=== PATIENT | female | born 1950 | race Caucasian/White ===

== ENCOUNTER 2023-03-06 07:09 | Emergency (ER) | payer MEDICARE, MEDICAID, SELFPAY ==
--- NOTE | ~2023-03-06 | CT_ITS ---
Noncontrast CT scan of the cervical spine Technique: Multiple contiguous axial [address] images of the cervical spine were obtained and rec onstructed in 2D sagittal and coronal planes on the acquisition scanner. Dose reduction technique was used on this scan by utilizing automated exposure control, adjustment of the mA and/or kV according to patient size. The dose-length product (DLP) was 368.18 mGy-cm. Clinical History: Pain Findings: No fractures or dislocations. There is straightening of the normal cervical lordosis. Ther e is moderate degenerative disc narrowing at C4-C5. There is right neural foraminal narrowing at C4-C 5. Possible minimal bilateral neural foraminal narrowing at C5-C6. No prevertebral soft tissue swelli ng. Impression: No fracture or subluxation of the cervical spine. Degenerative changes, as detailed above. Reviewed, dictated and finalized at [facility]. Impression: No fracture or subluxation of the cervical spine. Degenerative changes, as detailed above.
--- NOTE | ~2023-03-06 | CT_ITS ---
CT head without contrast Indication: Status post fall Technique: Serial scans were obtained through the brain without the administration of contrast. Dose reduction technique was used on this scan by utilizing automated exposure control and iterative recon struction technique. The dose-length product (DLP) was 529.67 mGy-cm. Findings: There is no evidence of intracranial hemorrhage, mass lesion, or acute infarct. The ventri cles and subarachnoid spaces are unremarkable. Low attenuation regions are seen within the periventr icular white matter bilaterally, likely representing changes from chronic microvascular ischemic dise ase. There is no evidence of edema, mass effect or midline shift. The visualized paranasal sinuses and mastoid air cells are clear. Impression: No intracranial hemorrhage, mass, or acute infarct. Mild chronic white matter changes, as above. Reviewed, dictated and finalized at location . Impression: No intracranial hemorrhage, mass, or acute infarct. Mild chronic white matter changes, as above.
[2023-03-06 07:13] VITALS: BP 199/84; PULSE 85; RESP 16; TEMP 36.8; O2SAT 98
--- NOTE | 2023-03-06 07:31 | ED.FALL ---
HPI - Fall General Chief Complaint: Fall Stated Complaint: fall, head injury Time Seen by Provider: 03/06/23 07:30 Source: patient and family Mode of arrival: ambulatory Limitations: no limitations History of Present Illness HPI Narrative: Patient got out of the bed, stumbled and fell, hit the doorknob by left side of the occipital area, no loss of consciousness, denies other injuries or pain. Laceration at the left occipital area. Last tetanus shot was 2 years ago. Related Data Allergies Allergy/AdvReac Type Severity Reaction Status Date / Time acetaminophen [From Fioricet] Allergy Unknown Verified 03/06/23 07:22 butalbital [From Fioricet] Allergy Unknown Verified 03/06/23 07:22 caffeine [From Fioricet] Allergy Unknown Verified 03/06/23 07:22 muscle relaxers Allergy Unknown Uncoded 03/06/23 07:22 Review of Systems Review of Systems: All systems reviewed & are unremarkable except as noted in HPI and below Exam Narrative: General appearance: Well-developed, well-nourished Skin: Normal color Head: 4 cm left occipital subcutaneous laceration Eyes: Clear conjunctiva ENT: Oropharynx normal, ears normal, nose normal Neck: Supple, nontender Chest and respiratory: Airway patent, no respiratory distress, no accessory muscle use Heart: Regular rate/rhythm Abdomen: Soft, nontender, no organomegaly, quiet bowel sounds Vascular: Normal peripheral pulses, normal capillary refill. Musculoskeletal: Normal range of motion, nontender back Neurologic: Alert and oriented ?3, ENGINEERING MANAGER ELECTRONICS is normal as tested, no gross motor deficit Course Reevaluation(s) Reevaluation #1: Feeling much better and ready to go Date: 03/06/23 Time: 08:38 Vital Signs Vital signs: Vital Signs Temperature 36.8 C 03/06/23 07:13 Pulse Rate 85 03/06/23 07:13 Respiratory Rate 16 03/06/23 07:13 Blood Pressure 199/84 H 03/06/23 07:13 Pulse Oximetry 98 03/06/23 07:13 Oxygen Delivery Room Air 03/06/23 07:13 Temperature 36.8 C 03/06/23 07:13 Pulse Rate 85 03/06/23 07:13 Respiratory Rate 16 03/06/23 07:13 Blood Pressure 199/84 H 03/06/23 07:13 Pulse Oximetry 98 03/06/23 07:13 Oxygen Delivery Room Air 03/06/23 07:13 Procedures Laceration Laceration 1: Date: 03/06/23 Time: 08:39 Site: scalp Size (cm): 4 Description: stellate, irregular and clean Depth: simple, single layer Local Anesthetic: none Pre-repair: wound explored ====== Skin Level ====== Skin layer closed with: kris (5 kris) ====== Subcutaneous Layer ====== ====== Muscle Layer ====== ====== Tendon Layer ====== MDM - Fall MDM Narrative Medical decision making narrative: A fall, scalp laceration, no other injuries, 5 kris, patient tolerated the procedure well. CT head and CT cervical spine showed no acute abnormalities Differential Diagnosis Differential diagnosis: Likely other (Scalp laceration) Imaging Data Radiologist's impression: Impressions Head CT 03/06/23 08:02 Impression: No intracranial hemorrhage, mass, or acute infarct. Mild chronic white matter changes, as above. Cervical Spine CT 03/06/23 08:04 Impression: No fracture or subluxation of the cervical spine. Degenerative changes, as detailed above. Critical Care Time Critical Care Time Critical Care Time: No Discharge Plan Discharge Clinical Impression: Laceration of scalp Qualifiers: Encounter type: initial encounter Qualified Code(s): S01.01XA - Laceration without foreign body of scalp, initial encounter Patient Disposition: Home, Self-Care Condition: Improved
[2023-03-06 08:41] VITALS: BP 155/59; PULSE 70; RESP 16; O2SAT 96
== END 2023-03-06 08:42 | disposition home or self-care (01) ==
PROVIDERS: Emergency Provider Emergency Medicine; PCP Internal Medicine
DX: S01.01XA Laceration without foreign body of scalp, initial encounter (principal); W01.198A Fall on same level from slipping, tripping and stumbling with subsequent striking against other object, initial encounter
CPT/HCPCS: 12002; 70450; 72125; 99284

== ENCOUNTER 2024-07-23 08:26 | Outpatient (CLI) | payer MEDICARE, SELFPAY ==
--- NOTE | ~2024-07-23 | XR_ITS ---
Clinical Indication: Cough PA and lateral views of the chest: Comparison: None Findings: The lungs are clear, without evidence of focal consolidation or pleural effusion. Cardiome diastinal silhouette is within normal limits. Bones and soft tissues are unremarkable. Impression: Normal chest. Reviewed, dictated and finalized at location . ATION MANAGERS Impression: Normal chest.
== END 2024-07-23 08:27 | disposition home or self-care (01) ==
PROVIDERS: PCP Internal Medicine; Visit Provider Internal Medicine
DX: R05.9 Cough, unspecified (principal)
CPT/HCPCS: 71046

== ENCOUNTER 2024-08-16 07:41 | Outpatient (CLI) | payer MEDICARE, SELFPAY ==
--- NOTE | 2024-08-16 | ECHO_ITS ---
Patient Info Name: Rochelle Ibrahim Age: 74 years : 1950 Gender: Female Ht: 62 in Wt: 174 lbs BSA: 1.89 m2 HR: 63 bpm BP: 149 / 78 mmHg Technical Quality: Good Exam Date: 08/16/2024 7:59 AM Exam Location: Echo Lab Patient Status: Outpatient Admit Date: 08/16/2024 Staff Ordering Physician: NicolaAsif MD Art Installer: Bella Huerta RDCS Attending Provider: HueAsif MD Exam Type: CA echo doppler color flow Study Info Indications R01.1 - Cardiac murmur, unspecified Complete two-dimensional, color flow and Doppler transthoracic echocardiogram is performed. Summary 1. Complete two-dimensional, color flow and Doppler transthoracic echocardiogram is performed. 2. The left ventricle is normal in size and systolic function. The left ventricular ejection fraction is visually estimated to be 55-60%. 3. The right ventricle is normal in size and systolic function. Left Ventricle The left ventricle is normal in size and systolic function. The left ventricular ejection fraction is visually estimated to be 55-60%. Right Ventricle The right ventricle is normal in size and systolic function. Left Atria The left atrium is mildly dilated. Right Atria The right atrium is normal size. Atrial Septum The atrial septum visually appears intact. Aortic Valve The aortic valve is trileaflet and sclerotic. There is no aortic regurgitation. Pulmonic Valve The pulmonic valve is not well visualized. There is no color Doppler evidence of pulmonic valve regurgitation. Mitral Valve The mitral valve is normal. There is trace mitral regurgitation. Tricuspid Valve The tricuspid valve is grossly normal. There is trace tricuspid valve regurgitation. Pericardium/Pleural Pericardium is normal in appearance with no evidence for significant pericardial effusion. Inferior Vena Cava Empty inferior vena cava with <50% collapse upon inspiration consistent with elevated right atrial pressure, 10 mmHg. Aorta The aortic root at the level of the sinus of Valsalva measures 2.3 cm in diameter. Left Ventricular Outflow Tract Name Value Normal LVOT 2D LVOT Diameter 1.9 cm LVOT Doppler LVOT Peak Gradient 6 mmHg LVOT Mean Gradient 4 mmHg LVOT VTI 32 cm LVOT VTI/AV VTI Ratio 0.7 LVOT Stroke Volume 90 ml LVOT CO 5.4 l/min LVOT CI 2.9 l/min/m2 Pulmonic Valve Name Value Normal RVOT Doppler RVOT Peak Gradient 3 mmHg PV Doppler PV Peak Gradient 4 mmHg Mitral Valve Name Value Normal MV Doppler MV Decel [place] 357 cm/s2 MV PHT 78 ms MV Area (PHT) 2.8 cm2 4.0-5.0 MV Diastolic Function MV E Peak Velocity 96 cm/s MV A Peak Velocity 110 cm/s MV E/A 0.9 MV Decel Time 269 ms Tricuspid Valve Name Value Normal TV Regurgitation Doppler TR Peak Velocity 268 cm/s TR Peak Gradient 29 mmHg Estimated PAP/RSVP RA Pressure 10 mmHg <=5 PA Systolic Pressure 39 mmHg <36 RV Systolic Pressure 39 mmHg <36 Aorta Name Value Normal Ascending Aorta Ao Root Diameter (MM) 2.8 cm Ao Root Diam Index (MM) 1.5 cm/m2 Aortic Valve Name Value Normal AV Doppler AV Peak Velocity 194 cm/s AV Peak Gradient 15 mmHg AV Mean Gradient 9 mmHg AV VTI 43 cm AV Area (Cont Eq VTI) 2.1 cm2 >=3.0 AV Area (Cont Eq Gurpreet) 1.8 cm2 AV Regurgitation 2D LVOT Area 2.8 cm2 Ventricles Name Value Normal LV Dimensions 2D/MM IVS Diastolic Thickness (2D) 0.9 cm 0.6-1.0 IVS Diastole Thickness (MM) 1.1 cm 0.6-0.9 LVID Diastole (2D) 4.3 cm 3.8-5.2 LVID Diastole (MM) 6.6 cm 3.8-5.2 LVIW Diastolic Thickness (2D) 1.0 cm 0.6-0.9 LVIW Diastolic Thickness (MM) 1.1 cm 0.6-0.9 LVID Systole (2D) 2.6 cm 2.2-3.5 LVID Systole (MM) 3.6 cm 2.2-3.5 LVOT Diameter 1.9 cm LV Mass (2D Cubed) 141.59 g 67.00-162.00 LV Mass Index (2D Cubed) 75 g/m2 43-95 Relative Wall Thickness (2D) 0.48 LV Mass (MM Cubed) 339.43 g 67.00-162.00 LV Mass Index (MM Cubed) 180 g/m2 43-95 Relative Wall Thickness (MM) 0.34 LV Fractional Shortening/Ejection Fraction 2D/MM LV Fractional Shortening (2D) 39 % 27-45 LV Fractional Shortening (MM) 46 % 27-45 LV EF (MM Teicholz) 76 % 54-74 LV EF (2D Teicholz) 69 % 54-74 LV Diastolic Volume (4C MOD) 93 ml LV EF (4C MOD) 57 % LV Diastolic Volume (2C MOD) 68 ml LV EF (2C MOD) 57 % LV Diastolic Volume (BP MOD) 78 ml 46-106 LV Diastolic Volume Index (BP MOD) 41 ml/m2 29-61 LV Systolic Volume (BP MOD) 35 ml 14-42 LV Systolic Volume Index (BP MOD) 19 ml/m2 8-24 LV EF (BP MOD) 55 % 54-74 LV Diastolic Length (4C) 7.7 cm LV Systolic Length (4C) 6.6 cm LV Stroke Volume (4C MOD) 53 ml Atria Name Value Normal LA Dimensions LA Dimension (MM) 4.4 cm 2.7-3.8 LA Volume (4C A-L) 68 ml LA Volume (BP A-L) 62 ml RA Dimensions RA Area (4C) 13.0 cm2 <=18.0 Report Signatures
== END 2024-08-16 07:42 | disposition home or self-care (01) ==
PROVIDERS: PCP Internal Medicine; Visit Provider Internal Medicine
DX: R01.1 Cardiac murmur, unspecified (principal)
CPT/HCPCS: 93306

== ENCOUNTER 2025-05-12 13:17 | Outpatient (CLI) | payer MEDICARE, SELFPAY ==
--- NOTE | ~2025-05-12 | XR_ITS ---
XR hip RT min 2V 05/12/2025 13:40 Indication: Right hip pain Procedure: 2 views right hip Comparison: No prior studies for comparison. Findings: Mild osteoarthritis of the right hip. No acute fracture, subluxation or dislocation. There is atherosclerosis. No soft tissue abnormality. No foreign bodies. Sacral foramen are symmetric. Impression: 1: Mild osteoarthritis of the right hip. Reviewed, dictated and finalized at location [facility]. Impression: 1: Mild osteoarthritis of the right hip.
--- OUTSIDE RECORDS SUMMARY | 2025-05-12 13:26 | XMS_ITS | Clinical Summary ---
Author Organization [facility] Address [address] [place] [address] Phone Care Team Providers Care Hot Roll Inspector Name Role Phone Renée Turner MD Primary Care Provider [phone] Allergies Active Allergy Reactions Criticality Noted Date Comments Other-Environmental Allergen (Not Found In Search) Unknown 11/13/2023 MUSCLE RELAXANTS, CAUSES NAUSEA Medications pravastatin (PRAVACHOL) 80 MG Tablet Take 80 mg by mouth every evening. Active amLODIPine (NORVASC) 5 MG Tablet Take 5 mg by mouth every morning. Active citalopram (CeleXA) 40 MG Tablet Take 40 mg by mouth every evening. Active losartan (COZAAR) 100 MG Tablet Take 100 mg by mouth every morning. Active calcium 600 MG Tablet Take 600 mg by mouth 2 times daily. Active Ascorbic Acid (VITAMIN C PO) Take 500 mg by mouth daily. Active Omeprazole 20 MG Tablet Delayed Response Take 1 Tablet by mouth as needed. 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 Gender Identity Not on file Sexual Orientation Not on file Last Filed Vital Signs Vital Sign Reading Time Taken Comments Blood Pressure 96/57 12/22/2023 10:02 AM CDT Pulse 64 12/22/2023 10:02 AM CDT Temperature 36.7 C (98.1 F) 12/22/2023 10:02 AM CDT Respiratory Rate 16 12/22/2023 10:02 AM CDT Oxygen Saturation 97% 12/22/2023 10:02 AM CDT Inhaled Oxygen Concentration - - Weight 74.8 kg (165 lb) 12/15/2023 7:00 AM CDT Height 157.5 cm (5' 2) 12/15/2023 7:00 AM CDT Body Mass Index 30.18 12/15/2023 7:00 AM CDT Plan of Treatment Not on file Medical Devices Implanted Type Area Senior Hr Generalist Device Identifier Shelf Expiration Date Model / Serial / Lot Technis 1-Piece Iol With Simplicity Delivery System Implanted:Qty: 1 on 11/24/2023 by Lani Rodrigez MD PhD at [facility] 02/21/2026 [id number] / [id number] / [id number] Right Lens Implanted:Qty: 1 on 12/22/2023 by Lani Rodrigez MD PhD at [facility] Right: Eye [employer] 05/22/2026 [id number] / [id number] / [id number] Insurance MEDICARE C [employer] Care Teams Hot Roll Inspector Relationship Specialty Start Date End Date Renée Turner MD [address] [place] [address] PCP - General Geriatric Medicine 11/24/23
--- OUTSIDE RECORDS SUMMARY | 2025-05-12 13:26 | XMS_ITS | Clinical Summary ---
Author Organization [facility] Address [address] [place] [address] Care Team Providers Care Fashion Editor Name Role Phone Asif Petersen MD Primary Care Provider Allergies Active Allergy Reactions Criticality Noted Date Comments Oyvxfprvqw-Xugnrpxbdj-Uqr-Cod Hives Medium 2019 Medications pravastatin (PRAVACHOL) 80 mg tablet Take 1 tablet (80 mg total) by mouth every evening Active losartan (COZAAR) 100 mg tablet Take 1 tablet (100 mg total) by mouth every morning Active citalopram (CeleXA) 40 mg tablet Take 1 tablet (40 mg total) by mouth every evening Active amLODIPine (NORVASC) 5 mg tablet Take 1 tablet (5 mg total) by mouth every morning Active Active Problems Problem Noted Date Diagnosed Date Essential tremor 09/25/2024 Immunizations Immunization Administration Dates Next Due Tdap 01/22/2020 Surgical History Surgery Date Site/Laterality Comments APPENDECTOMY CHOLECYSTECTOMY HERNIA REPAIR CATARACT EXTRACTION Medical History Medical History Date Comments HTN (hypertension) Hypercholesteremia Cataract Family History Medical History Relation Name Comments Hypertension Father Stroke Father Hypertension Mother Relation Name Status Comments Father Mother Social History Tobacco Use Types Packs/Day Years Used Date Smoking Tobacco: Never Smokeless Tobacco: Never Comments No Sex and Gender Information Value Date Recorded Sex Assigned at Not on file Legal Sex Female 3:14 PM CDT Gender Identity Not on file Sexual Orientation Not on file Obstetrics History Last Filed Vital Signs Vital Sign Reading Time Taken Comments Blood Pressure 148/74 09/21/2024 9:23 AM COAL MILL OPERATOR Pulse 78 09/21/2024 9:23 AM COAL MILL OPERATOR Temperature 36.4 C (97.6 F) 01/22/2020 3:20 PM CDT Respiratory Rate 17 01/22/2020 5:25 PM CDT Oxygen Saturation 94% 09/21/2024 9:23 AM COAL MILL OPERATOR Inhaled Oxygen Concentration - - Weight 79.8 kg (176 lb) 09/21/2024 9:23 AM COAL MILL OPERATOR Height 157.5 cm (5' 2) 09/21/2024 9:23 AM COAL MILL OPERATOR Body Mass Index 32.19 09/21/2024 9:23 AM COAL MILL OPERATOR Plan of Treatment Health Maintenance Due Date Last Done Comments Depression Screening 1950 Fall Risk Assessment 1950 Hepatitis C Screening 1950 Osteoporosis Screening-Bone Density Scan 1950 Hepatitis B Screening 1966 Pneumococcal vaccine 65+ (1 of 1 - PCV) 1998 Zoster Vaccine (1 of 2) 1998 Well Visit 65+ 2013 Influenza Vaccine (#1) 2025 DTaP/Tdap/Td Vaccine (2 - Td or Tdap) 01/21/2030 Insurance [employer] MEDICARE GOLD Care Teams Fashion Editor Relationship Specialty Start Date End Date Asif Petersen MD PCP - General Internal Medicine 09/21/24
== END 2025-05-12 13:18 | disposition home or self-care (01) ==
PROVIDERS: PCP Internal Medicine; Visit Provider Internal Medicine
DX: M16.11 Unilateral primary osteoarthritis, right hip (principal)
CPT/HCPCS: 73502

== ENCOUNTER 2025-07-22 10:13 | Outpatient (CLI) | payer MEDICARE, SELFPAY | END 2025-07-22 10:14 | disposition home or self-care (01) | PROVIDERS: PCP Internal Medicine; Visit Provider Internal Medicine | DX: I10 Essential (primary) hypertension (principal) | CPT/HCPCS: 36415 ==